=== PATIENT | female | born 2005 | race Caucasian/White ===

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

== ENCOUNTER 2025-01-29 21:01 | Emergency (ER) | payer OTHER, SELFPAY ==
--- NOTE | ~2025-01-29 | CT_ITS ---
CLINICAL HISTORY: rlq pain CT abdomen and pelvis with contrast Comparison: None provided Findings: There is minimal dependent atelectasis. The liver, gallbladder, pancreas, spleen, adrenal glands, and kidneys are unremarkable. The appendix is normal. The remainder of the gastrointestinal tract is unremarkable. There are no enlarged lymph nodes. The aorta and IVC are normal. Uterus and adnexa are unremarkable. The bladder is unremarkable. There is no fracture or suspicious lytic or sclerotic lesion. IMPRESSION: Unremarkable CT of the abdomen and pelvis. This document has been electronically signed by: Maldonado Dobson MD on 01/30/2025 02:12:09
[2025-01-29 21:06] VITALS: BP 98/62; PULSE 78; RESP 18; TEMP 36.9; O2SAT 97; BMI 41.4
[2025-01-29 21:30] VITALS: BP 105/64; PULSE 88; RESP 16; TEMP 36.6; O2SAT 97
[2025-01-29 21:33] LABS: Appearance Urine Clear; Glucose Urine UA Negative (Negative); PH 6.5 (5.0-9.0); Specific Gravity - Urine 1.020 (1.005-1.025); UPreg QC Valid YES
[2025-01-29 21:38] LABS: MANUAL DIFF FLAG NO
[2025-01-29 21:39] LABS: Hematocrit 40.2 % (37.0-47.0); Hemoglobin 13.6 g/dl (12.0-16.0); Imm Gran Abs Auto 0.04 X10*3/uL (0.00-0.03); Imm Gran Pct Auto 0.4 % (0.0-0.4); Lymphocytes Absolute Auto 2.8 X10*3/uL (1.2-4.9); Mean Corpuscular HGB Conc 33.8 g/dl (31.0-35.0); Mean Corpuscular Hemoglobin 28.0 pg (27.0-33.0); Mean Corpuscular Volume 82.7 fL (80.0-98.0); NRBC Abs Auto 0.000 X10*3/uL (0.0-0.012); NRBC Pct Auto 0.0 /100WBC (0.0-0.2); Platelet Count 345 X10*3/uL (160-400); Red Blood Count 4.86 X10*6/uL (4.20-5.50); White Blood Count 11.3 X10*3/uL (4.8-10.8)
[2025-01-29 21:52] LABS: Alanine Aminotransferase 15 U/L (0-31); Albumin Level 4.1 g/dL (3.5-5.0); Alkaline Phosphatase 68 U/L (39-117); Anion Gap 10 (12-20); Aspartate Amino Transferase 17 U/L (5-31); Blood Urea Nitrogen 11 mg/dL (9-16); Calcium 9.3 mg/dL (8.4-10.2); Carbon Dioxide 23 mmol/L (22-29); Chloride 110 mmol/L (96-108); Creatinine Clr Calc Pharmacy 130.6; Estimated Glomerular Filt Rate > 60; Lipase 21 U/L (8-78); Potassium 4.1 mmol/L (3.3-5.1); Sodium 139 mmol/L (135-145); Total Protein 7.2 g/dL (6.5-8.0)
--- NOTE | 2025-01-30 00:31 | ED_ITS ---
HPI - Nausea/Vomiting/Diarrhea General Chief complaint: Nausea/Vomiting/Diarrhea Stated complaint: lower abd pain,nausea Time Seen by Provider: 01/29/25 23:17 History of Present Illness HPI Narrative: Patient is a 19-year-old female presents today with having abdominal pain. The abdominal pain is over the lower abdomen. No vaginal discharge. Patient claims the pain is associated with some nausea since this morning. There is no urinary symptoms. No diarrhea no vomiting. Positive decrease in appetite. No history of abdominal surgery. Had 1 elective termination in the past. No coughing or congestion or upper respiratory symptoms. No fever no chills. No chest pain. No diaphoresis. Related Data Previous Rx's ?Medication ?Instructions ?Recorded ondansetron 4 mg disintegrating 4 mg PO DAILY PRN naus ea and 10/02/24 tablet vomiting #10 tabs ciprofloxacin 0.3 %-dexamethasone 4 drp otic (ears) BI D EAR 12/09/24 0.1 % ear drops,suspension INFECTION 7 days #7.5 mL xakkpcij-yqhhfjygq-wunrheotr 3.5 4 drp otic (ears) Q8H 10 days #10 12/10/24 mg-10,000 unit/mL-1 % ear mL drops,susp Allergies Allergy/AdvReac Type Severity Reaction Status Date / Time No Known Allergies Allergy Verified 01/29/25 21:08 Review of Systems 2 Review of Systems: Positive abdominal pain Yes all other systems are reviewed and are negative [facility] Past Medical History Attestation statement: The following information was validated with the patient. Medical History Otitis externa of both ears Depression Social History Social History Patient Tobacco Use Status: Never used Tobacco Smoked in Last 30 Days: Yes Use of substances other than those prescribed or required for medical reasons: No Advance Directives: No Advance Directives Information Provided: No Patient : No Physical Exam 2 Exam: Exam: Appearance: Alert. Oriented X3. No acute distress. Eyes: Pupils equal, round and reactive to light. ENT: Pharynx normal. Neck: Normal inspection. Neck supple. No lymph nodes noted. No crepitus CVS: Normal heart rate and rhythm. Pulses normal. Normal S1 and S2 Respiratory: No respiratory distress. Breath sounds normal. No Wheezing. No rales Abdomen: Soft and mild right lower quadrant tenderness no rebound or guarding No rigidity. No distention. good BS x4 Skin: Skin warm and dry. Normal skin color. Normal skin turgor. Extremities: No lower extremity edema. Neurovascular intact to all extremities. No Lacerations. No Rash Neuro: Oriented X 3. No motor deficit. No sensory deficit. Moving all extermities. No slurred speech Vital Signs: Vital Signs: Last Vital Signs Temp 97.9 F 01/29/25 21:30 Pulse 79 01/30/25 00:45 Resp 18 01/30/25 00:45 BP 100/60 01/30/25 00:45 Pulse Ox 100 01/30/25 00:45 O2 Del Method Room Air 01/30/25 00:45 BMI result Body Mass Index 41.4 Medications Administered Discontinued Medications Generic Name Dose Route Start Last Admin Trade Name Freq PRN Reason Stop Dose Admin Sodium Chloride 1,000 mls @ 999 mls/hr 01/30/25 00:30 01/30/25 02:00 Ns IV 01/30/25 01:30 Infused .Q1H1M LEO Infusion Iohexol 85 ml 01/30/25 01:33 01/30/25 01:34 Iohexol 350 Mg/Ml 100 Ml Infus..Btl IV 01/30/25 01:34 85 ml ONCE ONE Administration Ketorolac Tromethamine 15 mg 01/30/25 00:30 01/30/25 00:41 Ketorolac Tromethamine 15 Mg/Ml Vial IVPUSH 01/30/25 00:31 15 mg ONCE ONE Administration Medical Decision Making Medical Decision Making [facility] Narrative: I received sign-out from my colleague Dr. Jonhson no significant abnormality in patient's hematology or chemistry CT scan does not show any acute abnormality earlier today patient received IV fluids and ketorolac, patient feeling better patient states that she feels ready to go home Lab Data [facility] Lab Attestation statement: I reviewed the patient's lab results. 01/29/25 21:34 01/29/25 21:34 Labs: Lab Results 01/29/25 01/29/25 Range/Units 21:24 21:34 WBC 11.3 H (4.8-10.8) X10*3/uL RBC 4.86 (4.20-5.50) X10*6/uL Hgb 13.6 (12.0-16.0) g/dl Hct 40.2 (37.0-47.0) % MCV 82.7 (80.0-98.0) fL MCH 28.0 (27.0-33.0) pg MCHC 33.8 (31.0-35.0) g/dl RDW 13.5 (11.0-16.0) % Plt Count 345 (160-400) X10*3/uL MPV 9.7 (9.4-12.3) fL Immature Gran % (Auto) 0.4 (0.0-0.4) % Neut % (Auto) 63.6 (45-73) % Lymph % (Auto) 24.7 (20-40) % [place] % (Auto) 8.8 (2-11) % Eos % (Auto) 1.7 (0-4) % Baso % (Auto) 0.8 (0-2) % Lymph # (Auto) 2.8 (1.2-4.9) X10*3/uL [place] # (Auto) 1.0 (0.1-1.2) X10*3/uL Eos # (Auto) 0.2 (0.0-0.4) X10*3/uL Baso # (Auto) 0.1 (0.0-0.2) X10*3/uL Abs Immat Gran (auto) 0.04 H (0.00-0.03) X10*3/uL Absolute Neuts (auto) 7.2 (2.0-8.3) x10*3/uL Absolute Nucleated RBC 0.000 (0.0-0.012) X10*3/uL Nucleated RBC % (auto) 0.0 (0.0-0.2) /100WBC Sodium 139 (135-145) mmol/L Potassium 4.1 (3.3-5.1) mmol/L Chloride 110 H (96-108) mmol/L Carbon Dioxide 23 (22-29) mmol/L Anion Gap 10 L (12-20) BUN 11 (9-16) mg/dL Creatinine 0.69 (0.5-1.4) mg/dL Estim Creat Clear Calc 130.6 Estimated GFR > 60 Random Glucose 84 (60-115) mg/dL Calcium 9.3 (8.4-10.2) mg/dL Total Bilirubin 0.3 (0.0-1.0) mg/dL AST 17 (5-31) U/L ALT 15 (0-31) U/L Alkaline Phosphatase 68 (39-117) U/L Total Protein 7.2 (6.5-8.0) g/dL Albumin 4.1 (3.5-5.0) g/dL Lipase 21 (8-78) U/L Urine Color Yellow Urine Appearance Clear Urine pH 6.5 (5.0-9.0) Ur Specific [place] 1.020 (1.005-1.025) Urine Protein Negative (Neg-Trace) mg/dL Urine Glucose (UA) Negative (Negative) mg/dL Urine Ketones Negative (Negative) mg/dL Urine Blood Negative (Negative) Urine Nitrite Negative (Negative) Ur Leukocyte Esterase Negative (Negative) Urine RBC 0-2 (0-2) /HPF Urine WBC 0-5 (0-5) /HPF Ur Squamous Epith Cells 3-5 (0-2) /HPF Urine Bacteria None Seen (None Seen) Hyaline Casts 0-2 (0-2) /LPF Urine Test NEGATIVE (NEGATIVE) Independent Interpretation I performed an independent interpretation of an: CT Scan Radiology Impression Discussion of test interpretation with radiology: I have reviewed the radiologist's reading. Radiologist Impression: There is minimal dependent atelectasis. The liver, gallbladder, pancreas, spleen, adrenal glands, and kidneys are unremarkable. The appendix is normal. The remainder of the gastrointestinal tract is unremarkable. There are no enlarged lymph nodes. The aorta and IVC are normal. Uterus and adnexa are unremarkable. The bladder is unremarkable. There is no fracture or suspicious lytic or sclerotic lesion. IMPRESSION: Unremarkable CT of the abdomen and pelvis. Discharge Plan Discharge Clinical Impression: Abdominal pain Patient Disposition: Home, Self-Care Instructions: Abdominal Pain (ED) Additional Instructions: Please follow-up with your primary care physician tomorrow. If you have any worsening or new symptoms, please return to the emergency room or call 911 Prescriptions: No Action lqjmwrvc-osuvggpbo-CY 3.5-10,000-1 mg/mL-unit/mL-% drops,suspension 4 drp otic (ears) Q8H 10 Days Qty: 10 1RF ondansetron 4 mg tablet,disintegrating 4 mg PO DAILY PRN (Reason: nausea and vomiting) Qty: 10 0RF ciprofloxacin-dexamethasone 0.3-0.1 % drops,suspension 4 drp otic (ears) BID 7 Days Qty: 7.5 0RF Rx Instructions: BOTH EARS Print Language: Armenian
[2025-01-30 00:45] VITALS: BP 100/60; PULSE 79; RESP 18; O2SAT 100
[2025-01-30] MEDS: iohexoL 350 MG/ML 100 ML INFUS..BTL 85 ML IV (01:34)
== END 2025-01-30 16:03 | disposition home or self-care (01) ==
PROVIDERS: Emergency Medicine Emergency Medical Services; Emergency Provider Emergency Medicine; PCP Physician Assistant
DX: R11.2 Nausea with vomiting, unspecified (principal); R10.2 Pelvic and perineal pain; Z79.899 Other long term (current) drug therapy
CPT/HCPCS: 36415; 74177; 80053; 81001; 81025; 83690; 85025; 96361; 96374; 99284; 99285; J1885; Q9967

== ENCOUNTER → 2025-01-30 00:30 | Outpatient (BNV) | payer OTHER, SELFPAY | PROVIDERS: Emergency Provider Emergency Medicine; PCP Physician Assistant; Visit Provider Radiology Diagnostic Radiology | DX: R10.31 Right lower quadrant pain (principal) | CPT/HCPCS: 74177 ==

== ENCOUNTER 2025-02-22 12:01 | Emergency (ER) | payer OTHER, SELFPAY ==
[2025-02-22 12:22] VITALS: BP 136/80; PULSE 87; RESP 18; TEMP 36.4; O2SAT 98; BMI 41.4
--- NOTE | 2025-02-22 12:25 | ED_ITS ---
HPI - General Adult General Chief complaint: General Medical Stated complaint: Muscle spasms Related Data Previous Rx's ?Medication ?Instructions ?Recorded ondansetron 4 mg disintegrating 4 mg PO DAILY PRN naus ea and 10/02/24 tablet vomiting #10 tabs ciprofloxacin 0.3 %-dexamethasone 4 drp otic (ears) BI D EAR 12/09/24 0.1 % ear drops,suspension INFECTION 7 days #7.5 mL psurrgmp-abtroecta-uwbyclnno 3.5 4 drp otic (ears) Q8H 10 days #10 12/10/24 mg-10,000 unit/mL-1 % ear mL drops,susp ondansetron 4 mg disintegrating 4 mg PO Q6H PRN nausea and 01/30/25 tablet vomiting #14 tabs Allergies Allergy/AdvReac Type Severity Reaction Status Date / Time No Known Allergies Allergy Verified 02/22/25 12:24 [facility] Past Medical History Medical History Otitis externa of both ears Depression Social History Social History Patient Tobacco Use Status: Never used Tobacco Advance Directives: No Advance Directives Information Provided: No Physical Exam ED Vital Signs: Vital Signs - 24 hr 02/22/25 12:22 Temperature 97.6 F Pulse Rate 87 Respiratory Rate 18 Blood Pressure 136/80 Pulse Oximetry 98 Oxygen Delivery Method Room Air BMI result Body Mass Index 41.4 Course Course Course Narrative: RME, this is a rapid medical exam performed by Kyle Quintero please refer to primary provider for complete H&P- 19 year old female presents for evaluation of muscle spasms. They started in her back and now in her legs for one week. Plan for basic labs Medical Decision Making Lab Data 02/22/25 12:35 02/22/25 12:35 Labs: Lab Results 02/22/25 02/22/25 Range/Units 12:35 13:10 WBC 9.2 (4.8-10.8) X10*3/uL RBC 4.79 (4.20-5.50) X10*6/uL Hgb 13.2 (12.0-16.0) g/dl Hct 39.9 (37.0-47.0) % MCV 83.3 (80.0-98.0) fL MCH 27.6 (27.0-33.0) pg MCHC 33.1 (31.0-35.0) g/dl RDW 13.4 (11.0-16.0) % Plt Count 288 (160-400) X10*3/uL MPV 10.0 (9.4-12.3) fL Immature Gran % (Auto) 0.5 H (0.0-0.4) % Neut % (Auto) 62.9 (45-73) % Lymph % (Auto) 27.8 (20-40) % [place] % (Auto) 6.4 (2-11) % Eos % (Auto) 1.5 (0-4) % Baso % (Auto) 0.9 (0-2) % Lymph # (Auto) 2.6 (1.2-4.9) X10*3/uL [place] # (Auto) 0.6 (0.1-1.2) X10*3/uL Eos # (Auto) 0.1 (0.0-0.4) X10*3/uL Baso # (Auto) 0.1 (0.0-0.2) X10*3/uL Abs Immat Gran (auto) 0.05 H (0.00-0.03) X10*3/uL Absolute Neuts (auto) 5.8 (2.0-8.3) x10*3/uL Absolute Nucleated RBC 0.000 (0.0-0.012) X10*3/uL Nucleated RBC % (auto) 0.0 (0.0-0.2) /100WBC Sodium 138 (135-145) mmol/L Potassium 3.7 (3.3-5.1) mmol/L Chloride 109 H (96-108) mmol/L Carbon Dioxide 20 L (22-29) mmol/L Anion Gap 13 (12-20) BUN 13 (9-16) mg/dL Creatinine 0.74 (0.5-1.4) mg/dL Estim Creat Clear Calc 121.8 Estimated GFR > 60 Random Glucose 128 H (60-115) mg/dL Calcium 9.0 (8.4-10.2) mg/dL Magnesium 2.0 (1.6-2.6) mg/dL Total Bilirubin 0.3 (0.0-1.0) mg/dL AST 26 (5-31) U/L ALT 16 (0-31) U/L Alkaline Phosphatase 74 (39-117) U/L Total Protein 7.6 (6.5-8.0) g/dL Albumin 4.0 (3.5-5.0) g/dL Lipase 16 (8-78) U/L Urine Color Yellow Urine Appearance Clear Urine pH 6.0 (5.0-9.0) Ur Specific [place] >= 1.030 H (1.005-1.025) Urine Protein 30 (1+) H (Neg-Trace) mg/dL Urine Glucose (UA) Negative (Negative) mg/dL Urine Ketones 15 (Negative) mg/dL Urine Blood Negative (Negative) Urine Nitrite Negative (Negative) Ur Leukocyte Esterase Negative (Negative) Urine RBC 0-2 (0-2) /HPF Urine WBC 0-5 (0-5) /HPF Ur Squamous Epith Cells 11-20 (0-2) /HPF Urine Bacteria 2+ (None Seen) Hyaline Casts 0-2 (0-2) /LPF Discharge Plan Discharge Clinical Impression: Back pain Patient Disposition: Left W/O Completing Treatment Prescriptions: No Action boczbzcs-nmnvycmen-WH 3.5-10,000-1 mg/mL-unit/mL-% drops,suspension 4 drp otic (ears) Q8H 10 Days Qty: 10 1RF ondansetron 4 mg tablet,disintegrating 4 mg PO DAILY PRN (Reason: nausea and vomiting) Qty: 10 0RF ondansetron 4 mg tablet,disintegrating 4 mg PO Q6H PRN (Reason: nausea and vomiting) Qty: 14 0RF ciprofloxacin-dexamethasone 0.3-0.1 % drops,suspension 4 drp otic (ears) BID 7 Days Qty: 7.5 0RF Rx Instructions: BOTH EARS Discharge Date/Time: 02/22/25 18:26
[2025-02-22 12:51] LABS: MANUAL DIFF FLAG NO
[2025-02-22 12:53] LABS: Hematocrit 39.9 % (37.0-47.0); Hemoglobin 13.2 g/dl (12.0-16.0); Imm Gran Abs Auto 0.05 X10*3/uL (0.00-0.03); Imm Gran Pct Auto 0.5 % (0.0-0.4); Lymphocytes Absolute Auto 2.6 X10*3/uL (1.2-4.9); Mean Corpuscular HGB Conc 33.1 g/dl (31.0-35.0); Mean Corpuscular Hemoglobin 27.6 pg (27.0-33.0); Mean Corpuscular Volume 83.3 fL (80.0-98.0); NRBC Abs Auto 0.000 X10*3/uL (0.0-0.012); NRBC Pct Auto 0.0 /100WBC (0.0-0.2); Platelet Count 288 X10*3/uL (160-400); Red Blood Count 4.79 X10*6/uL (4.20-5.50); White Blood Count 9.2 X10*3/uL (4.8-10.8)
[2025-02-22 13:09] LABS: Alanine Aminotransferase 16 U/L (0-31); Albumin Level 4.0 g/dL (3.5-5.0); Alkaline Phosphatase 74 U/L (39-117); Anion Gap 13 (12-20); Aspartate Amino Transferase 26 U/L (5-31); Blood Urea Nitrogen 13 mg/dL (9-16); Calcium 9.0 mg/dL (8.4-10.2); Carbon Dioxide 20 mmol/L (22-29); Chloride 109 mmol/L (96-108); Creatinine Clr Calc Pharmacy 121.8; Estimated Glomerular Filt Rate > 60; Lipase 16 U/L (8-78); Magnesium 2.0 mg/dL (1.6-2.6); Potassium 3.7 mmol/L (3.3-5.1); Sodium 138 mmol/L (135-145); Total Protein 7.6 g/dL (6.5-8.0)
[2025-02-22 13:39] LABS: Appearance Urine Clear; Glucose Urine UA Negative (Negative); PH 6.0 (5.0-9.0); Specific Gravity - Urine >= 1.030 (1.005-1.025); UMIC TRIGGER UACC YES
--- OUTSIDE RECORDS SUMMARY | 2025-02-22 21:20 | XMS_ITS | Encounter Summary ---
Author Organization [facility] [place] [address] Care Team Providers Care Refractory Mixer Name Role Phone Damien Villaseñor MD Primary Care Pr ovider Reason for Visit * Reason Onset Date Comments Spasms 02/22/2025 Encounter Details Date Type Department Care Team (Late st Contact Info) Description 02/22/2025 Nurse Triage Adult Medicine [address] [phone] Jackie Atwood MA Social History Tobacco Use Types Packs/Day Years Used Date Smoking Tobacco: Former Smokeless Tobacco: Never Alcohol Use Standard Drinks/Week Comments Never 0 (1 standard drink = 0.6 oz pur e alcohol) Comments No Sex and Gender Information Value Date Recorded Sex Assigned at Not on file Legal Sex Female 6:14 PM EST Gender Identity Not on file Sexual Orientation Not on file documented as of this encounter Progress Notes * Yani Michael RN - 02/22/2025 10:12 AM EDT She was instructed to go to an [facility] for further evaluation and treatment. She is in agreement with this plan. Reason for Disposition [1] SEVERE back pain (e.g., excruciating, unable to do any normal activities) AND [2] not improved 2 hours after pain medicine Answer Assessment - Initial Assessment Questions 1. ONSET: When did the pain begin? (e.g., minutes, hours, days) 3 days ago 2. LOCATION: Where does it hurt? (upper, mid or lower back) Middle back 3. SEVERITY: How bad is the pain? (e.g., Scale 1-10; mild, moderate, or severe) She rates the pain as 10/10 4. PATTERN: Is the pain constant? (e.g., yes, no; constant, intermittent) Constant 5. RADIATION: Does the pain shoot into your legs or somewhere else? The pain radiates to both of her legs 6. CAUSE: What do you think is causing the back pain? Unknown 7. BACK OVERUSE: Any recent lifting of heavy objects, strenuous work or exercise? No 8. MEDICINES: What have you taken so far for the pain? (e.g., nothing, acetaminophen, NSAIDS) She has taken Ibuprofen for the pain with minimal effect 9. NEUROLOGIC SYMPTOMS: Do you have any weakness, numbness, or problems with bowel/bladder control? No 10. OTHER SYMPTOMS: Do you have any other symptoms? (e.g., fever, abdomen pain, burning with urination, blood in urine) Chronic abdominal pain 11. : Is there any chance you are ? When was your last menstrual period? No. Her LMP was 01/31/25 Protocols used: Back Pain-A-AH * Jackie Atwood MA - 02/22/2025 9:51 AM EDT Patient call requires triage: Symptoms patient is presenting: Spasms in Back and both legs How long has patient had these symptoms?: a few days ago and today its not stopping at all. For ALL patients calling to schedule any appointment (routine, sick visit, follow up, consult, etc.) in the outpatient setting please ask the following questions: Do you have fever of higher than 101, sore throat with difficulty swallowing or severe shortness ofbreath? no If YES to any of these above symptoms, send a message to triage and do not book. Red dot. If no, an audio or video visit should be booked. Have you had close contact with someone with Coronavirus in the last 14 days? no Have you traveled abroad? no Have you traveled recently to another state outside of [place], [place], [place], [place], [place]? no o If yes, did you quarantine for 14 days or have a negative covid test? no If yes to any of the above, patient is not to be scheduled in office until after 14 day quarantine or negative covid test. If pain or injury related was it due to an accident at work or from a motor vehicle accident? If yes, date of accident/Injury: No If yes, gather 3rd democrat insurance information Third Democrat Information: not applicable PCP: Damien Villaseñor MD Payor: [employer] PLAN / Plan: [employer] MEDICAID / Product Type: *No Product type* / documented in this encounter Plan of Treatment Upcoming Encounters Date Type Department Care Team (Late st Contact Info) Description 02/24/2025 5:00 PM EDT Appointment Radiology Department - [address] [phone] 03/03/2025 2:30 PM EDT Office Visit Adult Medicine [address] [phone] Missy Breaux PA [address] [place] [phone] 05/20/2025 8:30 AM EST Office Visit Adult Medicine [address] [phone] Damien Villaseñor MD [address] [place] [address] documented as of this encounter Visit Diagnoses Not on filedocumented in this encounter Care Teams Refractory Mixer Relationship Specialty Start Date End Date Damien Villaseñor MD [address] [place] [phone] PCP - General 06/24/23 documented as of this encounter
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
== END 2025-02-22 18:26 | disposition left against medical advice (07) ==
PROVIDERS: Physician Assistant; Emergency Provider Emergency Medicine; PCP Family Medicine
DX: M54.50 Low back pain, unspecified (principal); M62.830 Muscle spasm of back
CPT/HCPCS: 36415; 80053; 81001; 83690; 83735; 85025; 99282; 99283

== ENCOUNTER 2025-04-25 10:58 | Emergency (ER) | payer OTHER, SELFPAY ==
--- NOTE | ~2025-04-25 | XR_ITS ---
EXAMINATION: XR CHEST 2 VIEWS HISTORY: right sided chest pain COMPARISON: Comparison is made with the prior examination dated 09/13/2020. FINDINGS: PA and lateral views of the chest are submitted. There are increased markings in the right lower lobe which may represent early pneumonia. The left lung is clear. There is no pleural effusion, pneumothorax, or pulmonary vascular congestion. The heart is normal in size. The bones are intact. XR/XR chest 2V IMPRESSION: Increased markings in the right lower lobe which may represent early pneumonia. Electronically signed by: Cale Loomis MD 04/25/2025 11:55 AM EST
--- NOTE | 2025-04-25 11:00 | ECG_ITS ---
Test Reason : PALPITATION Blood Pressure : */* mmHG Vent. Rate : 95 BPM Atrial Rate : 95 BPM P-R Int : 146 ms QRS Dur : 98 ms QT Int : 358 ms P-R-T Axes : 61 51 42 degrees QTcB Int : 449 ms Normal sinus rhythm Normal ECG When compared with ECG of 02-Oct-2024 10:57, No significant change was found Referred By: Nita Espana Electronically Signed By: CULLEN BOSE MD
[2025-04-25 11:14] VITALS: BP 136/60; PULSE 103; RESP 18; TEMP 36.7; O2SAT 98; BMI 41.8
--- NOTE | 2025-04-25 11:18 | ED_ITS ---
HPI - General Adult General Chief complaint: Chest Pain Stated complaint: Chest Pain, Requesting Iron Level Check Time Seen by Provider: 04/25/25 12:29 Source: patient and old records reviewed Mode of arrival: ambulatory Limitations: no limitations History of Present Illness ED Provider: NAYE CEDENO narrative: 20 yo female with Fe deficiency and Vit D deficiency on oral OCPs here with c/o R sided pleuritic chest pain and chest wall pain x 1 day. Occurred at rest. She denies any recent travel, upper respiratory infection, trauma to the chest. She has never had this before she denies any history of coronary artery disease or issues with her heart that she is aware of other than sinus tachycardia. She states no new medications or history. She states it does hurt to touch the chest wall. She has no associated shortness of breath or nausea at baseline MD complaint: chest pain Onset (ago): day(s) (yesterday) Location: chest Radiation: non-radiation Severity: moderate Quality: sharp Pain Consistency: intermittent Relieving factors: none Exacerbating factors: other (inspiration) Associated symptoms: chest pain Treatments prior to arrival: none Related Data Previous Rx's ?Medication ?Instructions ?Recorded ondansetron 4 mg disintegrating 4 mg PO DAILY PRN naus ea and 10/02/24 tablet vomiting #10 tabs ciprofloxacin 0.3 %-dexamethasone 4 drp otic (ears) BI D EAR 12/09/24 0.1 % ear drops,suspension INFECTION 7 days #7.5 mL rkzckehw-qdktjjwko-bzsplqcaz 3.5 4 drp otic (ears) Q8H 10 days #10 12/10/24 mg-10,000 unit/mL-1 % ear mL drops,susp ondansetron 4 mg disintegrating 4 mg PO Q6H PRN nausea and 01/30/25 tablet vomiting #14 tabs Allergies Allergy/AdvReac Type Severity Reaction Status Date / Time No Known Allergies Allergy Verified 04/25/25 11:15 Review of Systems 2 Review of Systems: Yes all other systems are reviewed and are negative PMFSH Past Medical History Attestation statement: The following information was validated with the patient. Source: old records reviewed Medical History Otitis externa of both ears Depression Social History Social History (Reviewed 04/25/25 @ 13:38 by CODY Chavez Patient Tobacco Use Status: Never used Tobacco Advance Directives: No Advance Directives Information Provided: No Do you have a plan to hurt others: No Plan Physical Exam ED Vital Signs: Vital Signs - 24 hr 04/25/25 11:14 Temperature 98.1 F Pulse Rate 103 H Respiratory Rate 18 Blood Pressure 136/60 Pulse Oximetry 98 Oxygen Delivery Method Room Air BMI result Body Mass Index 41.8 Appearance: Alert. Oriented X3. No acute distress. Eyes: Pupils equal, round and reactive to light. ENT: Pharynx normal. Neck: Normal inspection. Neck supple. CVS: Normal heart rate and rhythm. Pulses normal. Chest: ttp along R anterior chest wall 2nd/3rd/4th rib area that reproduces pain Respiratory: No respiratory distress. Breath sounds normal. Abdomen: Soft and nontender. Skin: Skin warm and dry. Normal skin color. Normal skin turgor. Extremities: No lower extremity edema. No calf ttp Neuro: Oriented X 3. No motor deficit. No sensory deficit. CN2-12 intact Course Course Course Narrative: RME: 20-year-old female presents to ED for right-sided chest pain with pleurisy for the past couple of days. Patient denies any trauma, breast swelling, nipple discharge or redness. Patient is also requesting thyroid liver and iron level checked. Patient is on oral control pills Medical Decision Making Medical Decision Making MDM Narrative: 20 yo female with Fe deficiency and Vit D deficiency on oral OCPs here with c/o atypical chest pain that is reproducible and right-sided. She has no preceding illness or travel to suggest pericarditis. She does take OCPs so she has low probability of PE though her symptoms and vital signs are reassuring. She has no signs of DVT. At this time I am going to obtain EKG, basic labs, iron panel at her request, chest x-ray, D-dimer and troponin. If it is negative I am going to discharge her home she has symmetric distal pulses I do not think she has aortic dissection She has no fevers, sputum production, she has a very mild dry cough but otherwise feels fine I do not suspect infection Differential Diagnosis Differential Diagnoses: The differential diagnosis associated with the presentation includes atypical chest pain, low prob ACS, no pain or preceding illness to suggest pericarditis, low prob VTE Admission/Observation Consideration of admission/observation: Escalation of care including admission/observation considered work up reassuring stable for DC Lab Data MDM Lab Attestation statement: I reviewed the patient's lab results. 04/25/25 11:36 04/25/25 11:36 Labs: Lab Results 04/25/25 Range/Units 11:36 WBC 11.9 H (4.8-10.8) X10*3/uL RBC 4.92 (4.20-5.50) X10*6/uL Hgb 13.5 (12.0-16.0) g/dl Hct 42.0 (37.0-47.0) % MCV 85.4 (80.0-98.0) fL MCH 27.4 (27.0-33.0) pg MCHC 32.1 (31.0-35.0) g/dl RDW 13.3 (11.0-16.0) % Plt Count 366 D (160-400) X10*3/uL MPV 9.8 (9.4-12.3) fL Immature Gran % (Auto) 0.5 H (0.0-0.4) % Neut % (Auto) 63.2 (45-73) % Lymph % (Auto) 25.8 (20-40) % [place] % (Auto) 8.6 (2-11) % Eos % (Auto) 1.3 (0-4) % Baso % (Auto) 0.6 (0-2) % Lymph # (Auto) 3.1 (1.2-4.9) X10*3/uL [place] # (Auto) 1.0 (0.1-1.2) X10*3/uL Eos # (Auto) 0.2 (0.0-0.4) X10*3/uL Baso # (Auto) 0.1 (0.0-0.2) X10*3/uL Abs Immat Gran (auto) 0.06 H (0.00-0.03) X10*3/uL Absolute Neuts (auto) 7.5 (2.0-8.3) x10*3/uL Absolute Nucleated RBC 0.000 (0.0-0.012) X10*3/uL Nucleated RBC % (auto) 0.0 (0.0-0.2) /100WBC PT 12.1 (11.2-13.5) SEC INR 1.0 (0.9-1.1) APTT 29.7 (26.7-34.1) SEC D-Dimer High Sensitivty < 150 NG/ML Sodium 141 (135-145) mmol/L Potassium 4.1 (3.3-5.1) mmol/L Chloride 108 (96-108) mmol/L Carbon Dioxide 26 (22-29) mmol/L Anion Gap 11 L (12-20) BUN 14 (9-16) mg/dL Creatinine 0.72 (0.5-1.4) mg/dL Estim Creat Clear Calc 130.1 Estimated GFR > 60 Random Glucose 94 (60-115) mg/dL Calcium 9.4 (8.4-10.2) mg/dL Iron 40 (30-160) mcg/dL TIBC 287 (228-428) mcg/dL % Saturation 14 L (15-50) % Unsat Iron Binding 247 ug/dL Total Bilirubin 0.2 (0.0-1.0) mg/dL AST 15 (5-31) U/L ALT 19 (0-31) U/L Alkaline Phosphatase 70 (39-117) U/L Troponin I High Sens < 2.7 (<3.5-17.0) ng/L Total Protein 7.6 (6.5-8.0) g/dL Albumin 4.2 (3.5-5.0) g/dL TSH 3.84 (0.32-4.0) uIU/mL Influenza Type A (PCR) NEGATIVE (Negative) Influenza Type B (PCR) NEGATIVE (Negative) RSV RNA Qual (PCR) NEGATIVE (Negative) SARS-CoV-2 RNA (RT-PCR) NEGATIVE (Negative) Independent Interpretation I performed an independent interpretation of an: EKG and Plain X-Ray (normal no signs of clinical pneumonia) Interpretation: Rate: 95 Rhythm: NSR [place]: normal Normal P waves. Normal CARLA. Normal QRS complex. ST T wave : no TOMMY, inverted t waves V1 and V2 qTC: 449 prior studies: no acute ischemia The study has been interpreted contemporaneously by me. . Radiology Impression Discussion of test interpretation with radiology: I have reviewed the radiologist's reading. External Record Review External record reviewed: Outpatient record Prescription Management I considered prescription management with: Other Discharge Plan Discharge Clinical Impression: Atypical chest pain Patient Disposition: Home, Self-Care Instructions: Chest Pain (ED) Additional Instructions: Your viral panel is negative Your chest x-ray and EKG were reassuring Your test for blood clot and heart attack were normal Your hemoglobin was normal Your total iron count was 40, your TIBC was 287 your iron saturation saturation % was 14 At this time based on your symptoms I suspect that this is chest wall pain Return for any worsening symptoms or concerns Prescriptions: No Action ifkgkypa-hyclmntpa-JJ 3.5-10,000-1 mg/mL-unit/mL-% drops,suspension 4 drp otic (ears) Q8H 10 Days Qty: 10 1RF ondansetron 4 mg tablet,disintegrating 4 mg PO DAILY PRN (Reason: nausea and vomiting) Qty: 10 0RF ondansetron 4 mg tablet,disintegrating 4 mg PO Q6H PRN (Reason: nausea and vomiting) Qty: 14 0RF ciprofloxacin-dexamethasone 0.3-0.1 % drops,suspension 4 drp otic (ears) BID 7 Days Qty: 7.5 0RF Rx Instructions: BOTH EARS Stand Alone Forms: Work/School Release Interventions: ED Discharge Assessment Last Done: 04/25/25 13:43 Discharge Date/Time: 04/25/25 13:44 Print Language: Malagasy
[2025-04-25 11:41] LABS: MANUAL DIFF FLAG NO
[2025-04-25 11:48] LABS: Hematocrit 42.0 % (37.0-47.0); Hemoglobin 13.5 g/dl (12.0-16.0); Imm Gran Abs Auto 0.06 X10*3/uL (0.00-0.03); Imm Gran Pct Auto 0.5 % (0.0-0.4); Lymphocytes Absolute Auto 3.1 X10*3/uL (1.2-4.9); Mean Corpuscular HGB Conc 32.1 g/dl (31.0-35.0); Mean Corpuscular Hemoglobin 27.4 pg (27.0-33.0); Mean Corpuscular Volume 85.4 fL (80.0-98.0); NRBC Abs Auto 0.000 X10*3/uL (0.0-0.012); NRBC Pct Auto 0.0 /100WBC (0.0-0.2); Platelet Count 366 X10*3/uL (160-400); Red Blood Count 4.92 X10*6/uL (4.20-5.50); White Blood Count 11.9 X10*3/uL (4.8-10.8)
[2025-04-25 11:49] LABS: INTERNATIONAL NORM RATIO 1.0 (0.9-1.1); Prothrombin Time 12.1 SEC (11.2-13.5)
[2025-04-25 11:51] LABS: Partial Thromboplastin Time 29.7 SEC (26.7-34.1)
[2025-04-25 12:04] LABS: Alanine Aminotransferase 19 U/L (0-31); Albumin Level 4.2 g/dL (3.5-5.0); Alkaline Phosphatase 70 U/L (39-117); Anion Gap 11 (12-20); Aspartate Amino Transferase 15 U/L (5-31); Blood Urea Nitrogen 14 mg/dL (9-16); Calcium 9.4 mg/dL (8.4-10.2); Carbon Dioxide 26 mmol/L (22-29); Chloride 108 mmol/L (96-108); Creatinine Clr Calc Pharmacy 130.1; Estimated Glomerular Filt Rate > 60; Potassium 4.1 mmol/L (3.3-5.1); Sodium 141 mmol/L (135-145); Total Protein 7.6 g/dL (6.5-8.0)
[2025-04-25 12:06] LABS: Troponin-I High Sensitivity < 2.7 ng/L (<3.5-17.0)
[2025-04-25 12:19] LABS: Resp Syncy Virus RNA Qual PCR NEGATIVE (Negative); SARS COV2 PCR INHOUSE NEGATIVE (Negative)
[2025-04-25 12:34] LABS: D Dimer High Sensitivity < 150 NG/ML
[2025-04-25 13:21] LABS: Iron 40 mcg/dL (30-160); Percent Iron Saturation 14 % (15-50); Total Iron Binding Capacity 287 mcg/dL (228-428); Unsaturated Iron Binding 247 ug/dL
[2025-04-25 13:43] VITALS: BP 112/58; PULSE 86; RESP 16; TEMP 36.7; O2SAT 98
--- OUTSIDE RECORDS SUMMARY | 2025-04-25 16:53 | XMS_ITS | Encounter Summary ---
Author Organization [facility] Address [address] [place] [address] Care Team Providers Care Regulatory Compliance Director Name Role Phone Damien Villaseñor MD Primary Care Pr ovider Reason for Visit * Reason Onset Date Comments Fatigue 04/20/2025 Epistaxis (Nose Bleed) 04/20/2025 Encounter Details Date Type Department Care Team ([facility] st Contact Info) Description 04/20/2025 Telephone Adult Medicine [address] [phone] Damien Villaseñor MD [address] [place] [address] Social History Tobacco Use Types Packs/Day Years [...] as of this encounter Progress Notes * José Miguel Bowman RN - 04/20/2025 1:11 PM EST Called and spoke with pt. Pt c/o feeling very fatigue and sleeping all day for the pasta few weeks denies cold sx no fever pt eating and drinking normally. Pt c/o a few times notices blood in right nostril. Blood is never dripping out of nose. No head injury. Doesn't use humidifier. No chest pain no sob sts sometimes gets dizzy. None now. Given soonest appt in [facility] for 04/29 no appts with care team until end of may. Advised for any new or worsening sx or concerns to go to er for evaluation. Pt was also advised we reschedule cardiology appt and phone number given. Pt sts was unaware of appt * Jesu John - 04/20/2025 12:37 PM EST Patient call requires triage: Symptoms patient is presenting: Patient states she has been feeling tired, sleeping a lot more and recently getting bloody noses How long has patient had these symptoms?: 2- 3 weeks For ALL patients calling to schedule any [...] traveled recently to another state outside of [place], [place], [place], [place], [place], [place], [place]? no o If yes, did you quarantine [...] of accident/Injury: No If yes, gather 3rd libertarian insurance information Third Democrat Information: not applicable PCP: Damien Villaseñor MD Payor: [facility] PLAN / Plan: [facility] MEDICAID / Product Type: *No Product type* / documented in this encounter Plan of Treatment Upcoming Encounters Date Type Department Care Team (Late st Contact Info) Description 05/20/2025 8:30 AM EST Office Visit Adult [address] [phone] Damien Villaseñor MD [address] [place] [address] 07/14/2025 10:00 AM EDT Office Visit Adult [address] [phone] Missy Breaux PA [address] [place] [phone] documented as of this encounter Visit Diagnoses Not on filedocumented in this encounter Care Teams Regulatory Compliance Director Relationship Specialty Start Date End Date Damien Villaseñor MD [address] [place] [address] PCP - General 06/24/23 documented as of this encounter
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
--- OUTSIDE RECORDS SUMMARY | 2025-04-25 16:53 | XMS_ITS | Encounter Summary ---
Author Organization [facility] Address [address] [place] [address] Care Team Providers Care Stand In Name Role Phone Damien Villaseñor MD Primary Care Pr ovider Encounter Details Date Type Department Care Team (Late st Contact Info) Description 02/28/2025 Results Follow-Up Obstetrics and Gynecology [address] [phone] Stacy Ortega, [address] [phone] Social History Tobacco Use Types Packs/Day Years [...] on file documented as of this encounter Plan of Treatment Upcoming Encounters Date Type Department Care Team (Late st Contact Info) Description 05/20/2025 8:30 AM EST Office Visit Adult Medicine [address] [phone] Damien Villaseñor MD [address] [place] [address] 07/14/2025 10:00 AM EDT Office Visit Adult Medicine [address] [phone] Missy Breaux PA [address] [place] [phone] documented as of this encounter Visit Diagnoses Not on filedocumented in this encounter Care Teams Stand In Relationship Specialty Start Date End Date Damien Villaseñor MD [address] [place] [address] PCP - General 06/24/23 documented as of this encounter
--- OUTSIDE RECORDS SUMMARY | 2025-04-25 16:53 | XMS_ITS | Encounter Summary ---
Author Organization [facility] Address [address] [place] [address] Care Team Providers Care Commercial Lines Insurance Agent Name Role Phone Damien Villaseñor MD Primary Care Pr ovider Reason for Visit * Reason Onset Date Comments Epistaxis (Nose Bleed) 04/25/2025 itchy skin 04/25/2025 Encounter Details Date Type Department Care Team (Late st Contact Info) Description 04/25/2025 Nurse Triage Adult Medicine [address] [phone] Damien Villaseñor MD [address] [place] [address] Social History Tobacco Use Types Packs/Day Years [...] Progress Notes * Yani Michael RN - 04/25/2025 9:34 AM EST She was instructed to go to the ER for further evaluation and treatment. She is in agreement with this plan and states she will go to [facility] ER. Reason for Disposition Patient sounds very sick or weak to the triager Answer Assessment - Initial Assessment Questions 1. DESCRIPTION: Describe the itching you are having. She reports red blotchy spots on her body after itching. 2. SEVERITY: How bad is it? She rates the itching as 7/10 3. SCRATCHING: Are there any scratch palacios? Bleeding? No scratch palacios or bleeding. 4. ONSET: When did this begin? (e.g., minutes, hours, days ago) 4 days ago 5. CAUSE: What do you think is causing the itching? (ask about swimming pools, pollen, animals, soaps, etc.) No known cause per pt. 6. OTHER SYMPTOMS: Do you have any other symptoms? (e.g., fever, rash) No fever. She denies swelling of her face, lip or tongue. No difficulty breathing or swallowing. She has pain to the right side of her chest since yesterday, pain worsens with breathing. She rates the pain as 5/10. The pain is constant. No radiation to her neck, jaw or either arm. She denies shortness of breath. No unusual sweating. She reports hot/cold flashes. She reports intermittent dizziness. 7. : Is there any chance you are ? When was your last menstrual period? Her LMP was 04/01/25 Protocols used: Itching - [id number] * Cary Huang - 04/25/2025 8:32 AM EST Patient call requires triage: Symptoms patient is presenting: c/o itchy skin and bloody noses How long has patient had these symptoms?: 4 days For ALL patients calling to schedule any [...] traveled recently to another state outside of [place], [place], [place], [place], [place], [place], [place]? no o If yes, did you quarantine [...] of accident/Injury: No If yes, gather 3rd constitution party insurance information Third Green Party Information: not applicable PCP: Damien Villaseñor MD Payor: [employer] PLAN / Plan: [employer] MEDICAID / Product Type: *No Product type* / documented in this encounter Plan of Treatment Upcoming Encounters Date Type Department Care Team (Late st Contact Info) Description 05/20/2025 8:30 AM EST Office Visit Adult Medicine [address] [phone] Damien Villaseñro MD [address] [place] [address] 07/14/2025 10:00 AM EDT Office Visit Adult Medicine [address] [phone] Missy Breaux PA [address] [place] [phone] documented as of this encounter Visit Diagnoses Not on filedocumented in this encounter Care Teams Commercial Lines Insurance Agent Relationship Specialty Start Date End Date Damien Villaseñor MD [address] [place] [address] PCP - General 06/24/23 documented as of this encounter
== END 2025-04-25 13:44 | disposition home or self-care (01) ==
PROVIDERS: Physician Assistant; Emergency Provider Emergency Medicine; PCP Family Medicine
DX: R07.89 Other chest pain (principal); R06.02 Shortness of breath; R11.0 Nausea; Z03.818 Encounter for observation for suspected exposure to other biological agents ruled out
CPT/HCPCS: 36415; 71046; 80053; 83540; 84443; 84484; 85025; 85379; 85610; 85730; 87637; 93005; 99283

== ENCOUNTER → 2025-04-25 11:00 | Outpatient (BNV) | payer OTHER, SELFPAY | PROVIDERS: Emergency Provider Emergency Medicine; PCP Family Medicine; Visit Provider Internal Medicine Cardiovascular Disease | DX: R00.2 Palpitations (principal) | CPT/HCPCS: 93010 ==

== ENCOUNTER → 2025-04-25 11:18 | Outpatient (BNV) | payer OTHER, SELFPAY | PROVIDERS: PCP Family Medicine; Visit Provider Radiology Diagnostic Radiology | DX: R07.89 Other chest pain (principal) | CPT/HCPCS: 71046 ==